=== PATIENT | female | born 1955 | race Two or more races ===

== ENCOUNTER 2022-03-10 14:38 | Outpatient (CLI) | payer OTHER | END 2022-03-10 14:48 | disposition home or self-care (01) | LOC: RAD 14:38 | PROVIDERS: ATTEND Podiatrist Foot Surgery | DX: M20.41 Other hammer toe(s) (acquired), right foot (principal); M20.42 Other hammer toe(s) (acquired), left foot ==

== ENCOUNTER 2023-09-02 16:22 | Outpatient (CLI) | payer OTHER | END 2023-09-02 16:31 | disposition home or self-care (01) | LOC: RAD 16:22 | PROVIDERS: ATTEND Podiatrist Foot Surgery | DX: M77.31 Calcaneal spur, right foot (principal); M77.32 Calcaneal spur, left foot ==

== ENCOUNTER 2023-09-15 14:01 | Outpatient (CLI) | payer OTHER | END 2023-09-15 14:08 | disposition home or self-care (01) | LOC: MRI 14:01 | PROVIDERS: ATTEND Podiatrist Foot Surgery | DX: S92.252A Displaced fracture of navicular [scaphoid] of left foot, initial encounter for closed fracture (principal) | CPT/HCPCS: 73718 ==

== ENCOUNTER 2023-12-18 14:03 | Outpatient (CLI) | payer OTHER | END 2023-12-18 14:12 | disposition home or self-care (01) | LOC: RAD 14:03 | PROVIDERS: ATTEND Podiatrist Foot Surgery | DX: M77.31 Calcaneal spur, right foot (principal); M77.32 Calcaneal spur, left foot; M35.01 Sjogren syndrome with keratoconjunctivitis; M54.59 Other low back pain; M54.6 Pain in thoracic spine; M47.814 Spondylosis without myelopathy or radiculopathy, thoracic region; M47.817 Spondylosis without myelopathy or radiculopathy, lumbosacral region ==